=== PATIENT | male | born 1980 | race Caucasian/White ===

== ENCOUNTER 2017-02-03 12:05 | Emergency (ER) | payer BC, OTHER ==
[2017-02-03 12:16] VITALS: BP 130/65; PULSE 62; RESP 20; TEMP 99.5
--- NOTE | 2017-02-03 12:45 | ED ---
General Adult HPI - General Chief complaint: Extremity Injury, Lower Stated complaint: rt leg pain Time Seen by Provider: 02/03/17 12:20 Source: patient, RN notes reviewed Mode of arrival: ambulatory Limitations: no limitations - History of Present Illness Initial comments: Patient is a 36-year-old male who presents emergency room today with chief complaint of an injury to the right lower extremity. He does admit that he was trying to push open a large apartment door and he felt a pop in the back of his right calf. Patient does admit that he's had some pain and some swelling locally to this area. He does admit that it's worse with movements. Patient denies any other complaints or symptoms. Patient denies any recent fever, chills , shortness of breath, chest pain, back pain, abdominal pain, nausea or vomiting , numbness or tingling, dysuria or hematuria, constipation or diarrhea, headaches or visual changes, or any other complaints. - Related Data Home Medications Medication Instructions Recorded Confirmed Insulin Aspart [NovoLOG] 0 units SQ DIRECTED 02/03/17 02/03/17 Previous Rx's Medication Instructions Recorded Ibuprofen [Motrin] 600 mg PO Q6HR PRN #40 day 02/03/17 Allergies Allergy/AdvReac Type Severity Reaction Status Date / Time No Known Allergies Allergy Verified 02/03/17 12:13 Review of Systems ROS Statement: Those systems with pertinent positive or pertinent negative responses have been documented in the HPI. ROS Other: All systems not noted in ROS Statement are negative. Past Medical History Past Medical History: Diabetes Mellitus History of Any Multi-Drug Resistant Organisms: None Reported Past Surgical History: No Surgical Hx Reported Past Psychological History: No Psychological Hx Reported Smoking Status: Never smoker Past Alcohol Use History: Occasional Past Drug Use History: None Reported General Exam - General Exam Comments Initial Comments: General: The patient is awake and alert, in no distress, and does not appear acutely ill. Neck: The neck is supple, there is no tenderness or JVD. Cardiovascular: There is a regular rate and rhythm. No murmur, rub or gallop is appreciated. Respiratory: Lungs are clear to auscultation, respirations are non-labored, breath sounds are equal. No wheezes, stridor, rales, or rhonchi. Musculoskeletal: Patient has normal appearance of the right lower extremity no obvious deformity. Shows good range of motion. Has a negative Fairbanks's test. Sensations intact with pulses equal bilaterally 2+. Strength 5/5 in all directions. Neurological: A&O x 3. CN II-XII intact, There are no obvious motor or sensory deficits. Coordination appears grossly intact. Speech is normal. Skin: Skin is warm and dry and no rashes or lesions are noted. Psychiatric: Normal mood and affect. Limitations: no limitations Course Vital Signs 02/03/17 12:13 Temperature 99.5 F Pulse Rate 62 Respiratory 20 Rate Blood Pressure 130/65 O2 Sat by Pulse 98 Oximetry Medical Decision Making - Medical Decision Making Patient symptoms Consistent with possible partial tendon tear. Has been splinted in plantarflexion long-leg posterior OCL splint. Neurovascular rechecked and intact. Will be given a prescription for crutches. Advised to follow-up with orthopedics over the next 2 days. Disposition Clinical Impression: Partial rupture of Achilles tendon Disposition: HOME SELF-CARE Condition: Good Instructions: Achilles Tendon Rupture (ED) Additional Instructions: Please follow-up with orthopedics over the next 2 days. Please leave splint placed until follow-up appointment. Please use crutches nonweightbearing. Please return to emergency room for any other concerns. Prescriptions: Ibuprofen [Motrin] 600 mg PO Q6HR PRN #40 day PRN Reason: Pain Referrals: Hadley Ellis MD [Primary Care Provider] - 1-2 days Simone Blackwell MD [STAFF PHYSICIAN] - 1-2 days Time of Disposition: 12:43
== END 2017-02-03 12:50 | disposition home or self-care (01) ==
LOC: EC 12:05
DX: S86.011A Strain of right Achilles tendon, initial encounter (principal); E11.9 Type 2 diabetes mellitus without complications; Z79.4 Long term (current) use of insulin; X58.XXXA Exposure to other specified factors, initial encounter; Y93.89 Activity, other specified
CPT/HCPCS: 29505; 99283